=== PATIENT | female | born 1995 | race Caucasian/White ===

== ENCOUNTER 2021-10-08 22:26 | Emergency (ER) | payer OTHER ==
[~2021-10-08] VITALS: Ht 160 cm; Wt 72.6 kg
[2021-10-08] MEDS ORDERED: PREDNISONE50 MG PO (22:47)
[2021-10-08 23:30] VITALS: BP 123/78
== END 2021-10-08 23:30 | disposition home or self-care (01) ==
LOC: M.ERS 22:26
DX: T78.49XA Other allergy, initial encounter (principal); L50.9 Urticaria, unspecified; R06.89 Other abnormalities of breathing; X58.XXXA Exposure to other specified factors, initial encounter